=== PATIENT | female | born 1980 | race Caucasian/White ===

== ENCOUNTER 2017-07-02 17:07 | Emergency (ER) | payer SELFPAY ==
[~2017-07-02] VITALS: Ht 160 cm; Wt 56.0 kg
[2017-07-02 17:29] VITALS: BP 153/92; PULSE 101; RESP 20; TEMP 98.1; O2SAT 100
--- NOTE | 2017-07-02 18:58 | RADRPT ---
EXAM DATE/TIME: 07/02/2017 18:10 [facility] COMPARISON: No previous studies available for comparison. INDICATIONS : Left hand pain after patient was dragged by her dog. MEDICAL HISTORY : None. SURGICAL HISTORY : None. ENCOUNTER: Initial ACUITY: 1 day PAIN SCORE: 10/10 LOCATION: Left hand. FINDINGS: Horizontal fracture base of the proximal phalanx fifth digit. CONCLUSION: Fracture of base of proximal phalanx of fifth digit in reasonable alignment. Henrry Curran MD FACR on July 02, 2017 at 18:55 Board Certified Radiologist. This report was verified electronically.
--- NOTE | 2017-07-02 18:59 | RADRPT ---
EXAM DATE/TIME: 07/02/2017 18:14 [facility] COMPARISON: No previous studies available for comparison. INDICATIONS : Left knee pain after patient was dragged by her dog. MEDICAL HISTORY : None. SURGICAL HISTORY : None. ENCOUNTER: Initial ACUITY: 1 day PAIN SCORE: 4/10 LOCATION: Left knee. FINDINGS: Four view examination of the left knee demonstrates no evidence of fracture or dislocation. Bony min eralization is normal. The articular surfaces are intact. The suprapatellar soft tissues have a nor mal configuration. CONCLUSION: Negative for fracture or dislocation. Follow up in 7-10 days is suggested if symptoms persist.. Henrry Curran MD FACR on July 02, 2017 at 18:57 Board Certified Radiologist. This report was verified electronically.
== END 2017-07-02 20:22 | disposition left against medical advice (07) ==
LOC: NED 17:07
DX: M79.642 Pain in left hand (principal); M25.562 Pain in left knee
CPT/HCPCS: 73130; 73564; 99281